=== PATIENT | female | born 1955 | race Two or more races ===

== ENCOUNTER 2019-01-28 08:46 | Outpatient (CLI) | payer OTHER | END 2019-01-28 08:50 | disposition home or self-care (01) | LOC: TOM 08:46 | DX: R31.29 Other microscopic hematuria (principal) | CPT/HCPCS: 74177; Q9965 ==

== ENCOUNTER → 2019-02-24 | Outpatient (CLI) | payer OTHER | END | disposition home or self-care (01) | LOC: NUCLEAR 08:11 | DX: M25.50 Pain in unspecified joint (principal); G90.50 Complex regional pain syndrome I, unspecified | CPT/HCPCS: 78315; A9503 ==

== ENCOUNTER 2019-03-29 10:46 | Outpatient (CLI) | payer OTHER | END 2019-03-29 10:48 | disposition home or self-care (01) | LOC: NUCLEAR 10:46 | DX: I87.2 Venous insufficiency (chronic) (peripheral) (principal) ==

== ENCOUNTER 2019-06-17 11:46 | Outpatient (CLI) | payer OTHER | END 2019-06-17 12:29 | disposition home or self-care (01) | LOC: MRI 11:46 | DX: M25.562 Pain in left knee (principal) | CPT/HCPCS: 73721 ==

== ENCOUNTER 2019-10-18 17:25 | Outpatient (CLI) | payer OTHER | END 2019-10-18 18:25 | disposition home or self-care (01) | LOC: RAD 17:25 | DX: I10 Essential (primary) hypertension (principal) ==

== ENCOUNTER 2019-11-10 10:11 | Outpatient (CLI) | payer OTHER | END 2019-11-10 11:20 | disposition home or self-care (01) | LOC: MAMO-SONO 10:11 | DX: Z12.31 Encounter for screening mammogram for malignant neoplasm of breast (principal); Z87.898 Personal history of other specified conditions; N60.11 Diffuse cystic mastopathy of right breast; N60.12 Diffuse cystic mastopathy of left breast ==

== ENCOUNTER 2020-07-09 13:18 | Outpatient (CLI) | payer OTHER | END 2020-07-09 13:21 | disposition home or self-care (01) | LOC: RAD 13:18 | PROVIDERS: ATTEND Obstetrics & Gynecology | DX: M25.551 Pain in right hip (principal); M25.561 Pain in right knee; M79.651 Pain in right thigh ==

== ENCOUNTER 2020-10-08 11:36 | Outpatient (CLI) | payer OTHER | END 2020-10-08 18:00 | disposition home or self-care (01) | LOC: OFIC 805 11:36 | PROVIDERS: ATTEND Otolaryngology | DX: H92.02 Otalgia, left ear (principal) ==

== ENCOUNTER 2020-12-11 09:15 | Outpatient (CLI) | payer OTHER | END 2020-12-11 09:19 | disposition home or self-care (01) | LOC: RAD 09:15 | PROVIDERS: ATTEND Internal Medicine Cardiovascular Disease | DX: M54.2 Cervicalgia (principal); M53.82 Other specified dorsopathies, cervical region; M62.838 Other muscle spasm; H93.8X2 Other specified disorders of left ear; M26.609 Unspecified temporomandibular joint disorder, unspecified side ==

== ENCOUNTER 2020-12-18 08:39 | Outpatient (CLI) | payer OTHER | END 2020-12-18 08:47 | disposition home or self-care (01) | LOC: SONOGRAMA 08:39 → MAMO-SONO 10:15 | PROVIDERS: ATTEND Internal Medicine Cardiovascular Disease | DX: E03.8 Other specified hypothyroidism (principal) ==

== ENCOUNTER 2021-01-30 10:20 | Outpatient (CLI) | payer OTHER | END 2021-01-30 10:22 | disposition home or self-care (01) | LOC: RAD 10:20 | PROVIDERS: ATTEND Obstetrics & Gynecology | DX: M17.11 Unilateral primary osteoarthritis, right knee (principal); M17.12 Unilateral primary osteoarthritis, left knee; Z12.31 Encounter for screening mammogram for malignant neoplasm of breast; N60.11 Diffuse cystic mastopathy of right breast; N60.12 Diffuse cystic mastopathy of left breast ==

== ENCOUNTER 2021-01-30 12:08 | Outpatient (CLI) | payer OTHER | END 2021-01-30 12:18 | disposition home or self-care (01) | LOC: NUCLEAR 12:08 | PROVIDERS: ATTEND Obstetrics & Gynecology | DX: M81.0 Age-related osteoporosis without current pathological fracture (principal) ==

== ENCOUNTER → 2021-09-21 | Emergency (ER) | payer OTHER ==
[~2021-09-21] VITALS: Ht 152.4 cm; Wt 79.8 kg
[~2021-09-21] MED LIST: NEURONTIN300 MG; VAZALORE81 MG
== END | disposition left against medical advice (07) ==
LOC: ER 15:39
DX: Z53.21 Procedure and treatment not carried out due to patient leaving prior to being seen by health care provider (principal)

== ENCOUNTER 2022-02-04 08:38 | Outpatient (CLI) | payer OTHER | END 2022-02-04 08:46 | disposition home or self-care (01) | LOC: MAMO-SONO 08:38 | PROVIDERS: ATTEND Internal Medicine Cardiovascular Disease | DX: N63.11 Unspecified lump in the right breast, upper outer quadrant (principal) ==

== ENCOUNTER 2022-11-04 11:19 | Outpatient (CLI) | payer OTHER | END 2022-11-04 11:40 | disposition home or self-care (01) | LOC: RAD 11:19 | PROVIDERS: ATTEND Physical Medicine & Rehabilitation | DX: M77.41 Metatarsalgia, right foot (principal) ==

== ENCOUNTER 2023-02-17 14:41 | Outpatient (CLI) | payer OTHER | END 2023-02-17 14:45 | disposition home or self-care (01) | LOC: RAD 14:41 | PROVIDERS: ATTEND Physical Medicine & Rehabilitation | DX: M54.2 Cervicalgia (principal) ==

== ENCOUNTER → 2023-05-21 | Outpatient (CLI) | payer OTHER | END | disposition home or self-care (01) | LOC: SONOGRAMA 08:54 | PROVIDERS: ATTEND Physical Medicine & Rehabilitation | DX: M25.512 Pain in left shoulder (principal); M75.102 Unspecified rotator cuff tear or rupture of left shoulder, not specified as traumatic ==

== ENCOUNTER 2023-07-13 11:16 | Outpatient (CLI) | payer OTHER | END 2023-07-13 12:00 | disposition home or self-care (01) | LOC: MAMO-SONO 11:16 | PROVIDERS: ATTEND Internal Medicine Cardiovascular Disease | DX: Z12.31 Encounter for screening mammogram for malignant neoplasm of breast (principal); N60.12 Diffuse cystic mastopathy of left breast ==

== ENCOUNTER 2023-10-01 10:38 | Outpatient (CLI) | payer OTHER | END 2023-10-01 10:48 | disposition home or self-care (01) | LOC: RAD 10:38 | PROVIDERS: ATTEND Physical Medicine & Rehabilitation | DX: M17.11 Unilateral primary osteoarthritis, right knee (principal); M17.12 Unilateral primary osteoarthritis, left knee ==

== ENCOUNTER 2023-12-01 17:05 | Inpatient (IN) | payer OTHER ==
[~2023-12-01] VITALS: Ht 152.4 cm; Wt 76.2 kg
[2023-12-01] MEDS ORDERED: NEURONTIN300 MG PO (17:33)
[2023-12-01] MEDS ORDERED: ZYRTEC10 M3 PO (17:34)
[2023-12-01] MEDS ORDERED: AVAPRO150 MG PO (17:34)
--- NOTE | 2023-12-01 17:34 | NUR ---
PTE ALERTA Y ORIENTADA X3 REFIERE DOLOR DE GILMER CONCENTRADO EN LADO ELTON, PTE REFIERE QUE ESTUVO CONVERSANDO Y DE REPENTE NO PODIA PRONUNCIAR LAS PALABRAS CORRECTAMENTE. AL MOMENTO DE TRIAGE SE LE PIDE A PTE QUE SONRIA Y PARPADEE VARIAS VECES, PTE LOGRO HACERLO DE MANERA SIMETRICA. SE MIDEN SV Y SE UBICA EN FT.
--- NOTE | 2023-12-01 21:19 | NUR ---
PACIENTE ALERTA Y ORIENTADA X 3. SE ORIENTA DE TRATAMIENTO KAYLENE ORDEN MEDICA. REFIERE ENTENDER. SE NEFTALI MUESTRAS CON MEDIDAS ASEPTICAS CORRESPONDIENTES Y SE NOTIFICA CT A MIS S PERKINS SECRETARIA.
[2023-12-01 21:42] LABS: HEMATOCRIT 40.7 % (36.0-45.00); HEMOGLOBIN 13.9 g/dL (12.0-15.00); MEAN CELL VOLUME 93.2 fL (80.00-100.00); MEAN CORPUSCULAR HEMOGLOBIN 31.8 pg (27.00-32.0); MEAN CORPUSCULAR HGB CONC 34.2 g/dl (32.0-36.0); PLATELET COUNT 275 K/uL (150-450); RED BLOOD COUNT 4.37 M/uL (4.00-6.00); RED CELL DISTRIBUTION WIDTH 13.5 % (11.5-14.5)
[2023-12-01 22:05] LABS: BILIRUBIN TOTAL 0.85 mg/dL (0.3-1.2); CALCIUM 9.3 mg/dL (8.5-10.1); CREATININE SERUM 0.8 mg/dL (0.55-1.02); GFR 70.91; GLOBULINA 3.5 G/DL (2.4-3.5); POTASSIUM 4.07 mEq/L (3.5-5.1); TOTAL PROTEIN 7.5 gm/dL (6.4-8.2)
[2023-12-01] MEDS ORDERED: ATORVASTATIN CALCIUM 40 MG TABLET PO SCH (23:42)
[2023-12-01] MEDS ORDERED: ONDANSETRON HCL 4 MG in 0.9 % SODIUM CHLORIDE 50 ML IV PRN (23:45)
[2023-12-01] MEDS ORDERED: 0.9 % SODIUM CHLORIDE 1,000 ML IV SCH (23:45)
[2023-12-02 01:32] LABS: D DIMER 0.4 MG/L; PROTHROMBIN TIME 10.5 SECONDS (9.0-11.5)
[2023-12-02 02:22] LABS: PH,URINE 5.5 (5.0-8.0); URINE APPEARANCE Clear; URINE BILIRRUBIN Negative (NEGATIVE); URINE BLOOD Small; URINE COLOR Yellow; URINE GLUCOSE Negative (NEGATIVE); URINE LEUKOCYTE Negative; URINE NITRATE Negative; URINE PROTEIN Negative (NEGATIVE); URINE UROBILINOGEN 0.2 E.U./dl
[2023-12-02 02:23] LABS: URINE BACTERIA 18.8 uL (0.0-1933); URINE EPITHELIAL CELLS 5.7 uL (0.0-38.8); URINE RBC 13.9 uL (0.0-20.8); URINE WBC 6.3 uL (0.0-23.2)
[2023-12-02 07:11] LABS: CHOL HDL RATIO 2.7 (0-5.0); TSH 2.16 uIU/mL (0.358-3.74)
[2023-12-02] MEDS ORDERED: ASPIRIN 81 MG TAB.CHEW PO SCH (09:00)
[2023-12-02] MEDS ORDERED: FAMOTIDINE/PF 20 MG in 0.9 % SODIUM CHLORIDE 8 ML IV PUSH SCH (09:00)
[2023-12-02] MEDS ORDERED: IRBESARTAN 150 MG TABLET PO SCH (09:00)
[2023-12-02] MEDS ORDERED: CLOPIDOGREL BISULFATE 75 MG TABLET PO SCH (16:55)
[2023-12-03] MEDS ORDERED: ENOXAPARIN SODIUM 40 MG/0.4 ML SYRINGE SUBCUTANEO SCH (09:00)
[2023-12-03] MEDS ORDERED: CLOPIDOGREL BIS75 MG PO (12:13)
[2023-12-03] MEDS ORDERED: LIPITOR40 M1 PO (12:13)
[2023-12-03] MEDS ORDERED: AVAPRO150 MG PO (12:13)
== END 2023-12-03 13:34 | disposition home or self-care (01) | DRG 65 ==
LOC: ER 17:05 → MEDI 23:43
PROVIDERS: General Practice; ADMIT Internal Medicine; ATTEND Internal Medicine
PROC: B020ZZZ Computerized Tomography (CT Scan) of Brain (ICD-10-PCS; principal; 2023-12-01)
PROC: B030ZZZ Magnetic Resonance Imaging (MRI) of Brain (ICD-10-PCS; 2023-12-01)
PROC: B24BYZZ Ultrasonography of Heart with Aorta using Other Contrast (ICD-10-PCS; 2023-12-01)
PROC: 4A12X4Z Monitoring of Cardiac Electrical Activity, External Approach (ICD-10-PCS; 2023-12-02)
DX: I63.9 Cerebral infarction, unspecified (principal); G45.9 Transient cerebral ischemic attack, unspecified
CPT/HCPCS: 70544

== ENCOUNTER 2024-04-25 09:44 | Outpatient (CLI) | payer OTHER ==
[~2024-04-25 09:44] MED LIST changes: +AVAPRO150 MG PO; +CLOPIDOGREL BIS75 MG PO; +LIPITOR40 M1 PO; +NEURONTIN300 MG PO; +ZYRTEC10 M3 PO
== END 2024-04-26 08:39 | disposition home or self-care (01) ==
LOC: RAD 09:44
PROVIDERS: ATTEND Physical Medicine & Rehabilitation
DX: M12.9 Arthropathy, unspecified (principal); M46.47 Discitis, unspecified, lumbosacral region; M25.531 Pain in right wrist

== ENCOUNTER 2024-06-16 08:31 | Outpatient (CLI) | payer OTHER | END 2024-06-16 08:34 | disposition home or self-care (01) | LOC: TOM 08:31 | PROVIDERS: ATTEND Internal Medicine Nephrology | DX: R31.9 Hematuria, unspecified (principal); C67.9 Malignant neoplasm of bladder, unspecified | CPT/HCPCS: 74177; Q9965 ==

== ENCOUNTER 2025-05-18 15:17 | Emergency (ER) | payer OTHER ==
[~2025-05-18] VITALS: Ht 160 cm; Wt 90.7 kg
[2025-05-18 15:45] VITALS: BP 119/65; O2SAT 98
[2025-05-18] MEDS ORDERED: ACETAMINOPHEN 500 MG GEL..CAP PO ONE ×2 (17:00→17:58)
[2025-05-18] MEDS ORDERED: TRIAMCINOLONE ACETONIDE 40 MG/ML VIAL IM ONE (17:00)
[2025-05-18] MEDS ORDERED: TRIAMCINOLONE ACETONIDE 40 MG/ML VIAL ONE (17:31)
[2025-05-18] MEDS ORDERED: DEXAMETHASONE SODIUM PHOSPHATE 4 MG/ML VIAL ONE (17:58)
== END 2025-05-18 19:13 | disposition home or self-care (01) ==
LOC: ER 15:23
DX: G89.11 Acute pain due to trauma (principal); M25.571 Pain in right ankle and joints of right foot
CPT/HCPCS: 73610; 96372; 99283; J3301

== ENCOUNTER 2025-08-16 12:29 | Outpatient (CLI) | payer OTHER | END 2025-08-16 12:32 | disposition home or self-care (01) | LOC: RAD 12:29 | PROVIDERS: ATTEND Internal Medicine Cardiovascular Disease | DX: M12.9 Arthropathy, unspecified (principal) ==